=== PATIENT | female | born 1955 | race Caucasian/White ===

== ENCOUNTER 2020-08-08 11:44 | Emergency (ER) | payer OTHER ==
--- OUTSIDE RECORDS SUMMARY | 2020-08-08 11:48 | XMS REPORT | Continuity of Care Document ---
:1955 Author Organization [facility] t Address [address] [place] [address] Dr. Kuo. [address] [place] [address] Care Team Providers Name Role Phone Lab, Fam Pob I Attending Clinician Unavailable Problems This patient has no known problems. Allergies, Adverse Reactions, Alerts This patient has no known allergies or adverse reactions. Medications This patient has no known medications. Procedures This patient has no known procedures. Encounters Start End Encounter Admission Attending Care Care Encounter Source Date/Time Date/Time Type Type Clinicians Facility Department ID 2019-12-13 2019-12-13 Laboratory Lab, [facility] [id number] 14:19:45 14:39:45 Only Fam Pob I [facility] [id number] [place] [id number] [place] [id number] [address] Results This patient has no known results.
--- NOTE | 2020-08-08 12:10 | RAD REPORT ---
EXAM DESCRIPTION: CT - Ct Stroke Brain Wo Cont - 08/08/2020 12:00 pm CLINICAL HISTORY: Vision loss COMPARISON: none TECHNIQUE: Computed axial tomography of the head was obtained. All CT scans are performed using dose optimization technique as appropriate and may include automated exposure control or mA/KV adjustment according to patient size. FINDINGS: An intracranial bleed is not seen . The ventricles are normal in caliber. No extra-axial fluid collection is noted. Fluid within the sinuses/ mastoids is not seen. IMPRESSION: No acute intracranial abnormality is seen. If patient's symptoms persist MRI of the bra in would be recommended. Dr Fan of the emergency room was notified at 12:05 p.m. August 08, 2020
--- NOTE | 2020-08-08 12:24 | RAD REPORT ---
EXAM DESCRIPTION: CTHead angio08/08/2020 12:13 pm CLINICAL HISTORY: Vision loss COMPARISON: None TECHNIQUE: CT angiogram of the head was obtained. 3D MIPS reconstruction performed. All CT scans are performed using dose optimization technique as appropriate and may include automated exposure control or mA/KV adjustment according to patient size. FINDINGS: The basilar, internal carotid, anterior cerebral, middle cerebral and posterior cerebral a rteries are normal caliber. An aneurysm is not seen. A significant stenosis is not noted. IMPRESSION: Unremarkable CT angiogram head.
[2020-08-08 12:27] LABS: Absolute Lymphocytes (CBC) 1.3 K/uL (0.7-4.9); Basophils % 1.2 % (0-1.3); Hematocrit 41.4 % (36.0-45.0); Lymphocytes % 43.3 % (15.3-44.8); MPV 9.3 fL (7.6-11.3); RBC Red Blood Cell Count 3.93 M/uL (3.86-4.86)
[2020-08-08] MEDS ORDERED: TETRACAINE HCL 0.5% 4ML OPTH ONE (12:46)
[2020-08-08] MEDS ORDERED: ASPIRIN 81 MG CHEWABLE TABLET ONE (12:51)
[2020-08-08 13:02] LABS: Blood Morphology Comment NOTED (NOT SEEN); White Blood Cell Scan OK (OK)
[2020-08-08 13:03] LABS: Protime INR 0.9
[2020-08-08 13:03] LABS: Anisocytosis 1+; Macrocytosis 1+; Platelet Estimate ADEQ
[2020-08-08 13:09] LABS: BUN Blood Urea Nitrogen 4 mg/dL (7-18); Bicarbonate 29 mmol/L (21-32); Glucose Level 80 mg/dL (74-106); Potassium 4.3 mmol/L (3.5-5.1); Sodium Level 141 mmol/L (136-145)
--- NOTE | 2020-08-08 13:30 | ER ---
Nurse's Notes [facility] Name: Vicky Marquis Age: 64 yrs Sex: Female : 1955 Arrival Date: 08/08/2020 Time: 11:46 Bed 5 Private MD: Diagnosis: Unqualified visual loss, left eye, normal vision right eye;Central retinal artery occlusion, left eye Presentation: 08/08 11:45 An acute neurological deficit is present. The charge nurse has been notified. The tr6 patient has been moved to a treatment area. The patients blood glucose was checked before arriving to the hospital and was found to be normal. 11:46 Chief complaint: Patient states: Woke up this morning perfectly fine. Took a nap around ca1 1000, woke up 25 - 30 minutes later with sudden loss of vision on L eye. Still unable to see on the L eye at this time. VAN Negative. A\T\Ox4. Denies HX of CVA. Denies HX of Glaucoma, Eye Conditions. Reports headache L side x 1 week. Reports last night, lost her balance and fell. Did not hit head or face. Denies LOC. Coronavirus screen: Client denies travel out of the [place] in the last 14 days. At this time, the client does not indicate any symptoms associated with coronavirus-19. Ebola Screen: Patient negative for fever greater than or equal to 101.5 degrees Fahrenheit, and additional compatible Ebola Virus Disease symptoms Patient denies exposure to infectious person. Patient denies travel to an Ebola-affected area in the 21 days before illness onset. No symptoms or risks identified at this time. Initial Sepsis Screen: Does the patient meet any 2 criteria? No. Patient's initial sepsis screen is negative. Does the patient have a suspected source of infection? No. Patient's initial sepsis screen is negative. Risk Assessment: Do you want to hurt yourself or someone else? Patient reports no desire to harm self or others. Onset of symptoms was August 08, 2020 at 10:30. 11:46 Acuity: NORMA 2 ca1 11:46 Method Of Arrival: Wheelchair ca1 Stroke Activation: Symptom onset < 3 hours Physician: Stroke Attending; Name: ; Notified At: ; Arrived At: Physician: Chief Stroke Resident; Name: ; Notified At: ; Arrived At: Physician: Stroke Resident; Name: ; Notified At: ; Arrived At: Physician: ED Attending; Name: ; Notified At: ; Arrived At: Physician: ED Resident; Name: ; Notified At: ; Arrived At: Historical: - Allergies: 12:07 Talwin; ca1 - Home Meds: 12:07 Lexapro Oral [Active]; ca1 - PMHx: 12:07 Depression; ca1 - PSHx: 12:07 Hysterectomy; ca1 - Immunization history:: Client reports receiving the 2nd dose of the Covid vaccine, Client reports receiving the 1st dose of the Covid vaccine, Flu vaccine is not up to date. - Social history:: Smoking status: Patient denies any tobacco usage or history of. - Family history:: not pertinent. - Hospitalizations: : No recent hospitalization is reported. Screenin:46 Abuse screen: Denies threats or abuse. Denies injuries from another. Nutritional tr6 screening: No deficits noted. Tuberculosis screening: No symptoms or risk factors identified. Fall Risk Fall in past 12 months (25 points). Assessment: 11:47 VAN Scoring: Arm Drift: Patients demonstrates NO arm weakness. Patient is VAN Negative. ca1 11:53 General: code stroke called. tr6 12:34 Patient has been NPO before screening. The patient is alert, and able to follow tr6 commands. The patient does not exhibit slurred or garbled speech. The patient is not exhibiting difficulty speaking. The patient does not exhibit difficulty understanding words. The patient is able to swallow own secretions with no drooling or need for suction. Patient tolerated one teaspoon of water. No drooling, immediate coughing, gurgling, or clearing of the throat was noted. The patient tolerated 90mL of water. No drooling, immediate coughing, gurgling, or clearing of the throat was noted. The patient passed the bedside swallow screening. Oral medications may be given as ordered. Contact Physician for further diet orders. Provider notified of bedside swallow screening results: García Fan MD. Pain: Complains of pain in above left eye. Neuro: No deficits noted. Cardiovascular: No deficits noted. Respiratory: No deficits noted. GI: No deficits noted. : No deficits noted. EENT: Reports pt states when she woke up from a nap she was unable to see out of her left eye. Derm: No deficits noted. Musculoskeletal: No deficits noted. 13:45 Reassessment: Patient appears in no apparent distress at this time. No changes from tr6 previously documented assessment. Patient and/or family updated on plan of care and expected duration. Pain level reassessed. Patient is alert, oriented x 3, equal unlabored respirations, skin warm/dry/pink. Neuro: No deficits noted. Vital Signs: 11:46 BP 122 / 77; tr6 11:46 BP 122 / 75; Pulse 75; Resp 16 S; Temp 97(TE); Pulse Ox 95% on R/A; Weight 67.13 kg ca1 (R); Height 5 ft. 5 in. (165.10 cm) (R); Pain 0/10; 14:00 BP 129 / 85; Pulse 71; Resp 18; Pulse Ox 93% on R/A; tr6 11:46 Body Mass Index 24.63 (67.13 kg, 165.10 cm) ca1 NIH Stroke Scale Scores: 12:34 NIHSS Score: 1 tr6 ED Course: 11:46 Patient arrived in ED. as 11:46 Arm band placed on right wrist. ca1 11:47 García Fan MD is Attending Physician. rn 11:53 Lynne Glez RN is Primary Nurse. tr6 12:00 CT Stroke Brain w/o Contrast In Process Unspecified. EDMS 12:06 Triage completed. ca1 12:14 CT Head Angio In Process Unspecified. EDMS 13:22 initiated transfer to [facility]. bd 13:45 Report given to Roberta SAVAGE from receiving facility [facility]. tr6 13:46 No apparent distress. Resting quietly. transfer transportation to receiving facility. tr6 13:46 Patient has correct armband on for positive identification. Fall risk band placed. Bed tr6 in low position. Call light in reach. Side rails up X2. 13:46 Assist provider with eye exam of left eye. using slit lamp, Performed by García Fan MD tr6 Patient tolerated well. Inserted saline lock: 20 gauge in right antecubital area, using aseptic technique. Patient maintains SpO2 saturation greater than 95% on room air. 14:35 Patient transferred, IV remains in place. tr6 Administered Medications: 12:38 Drug: Aspirin Chewable Tablet 324 mg Route: PO; tr6 13:36 Follow up: Response: No adverse reaction jl7 13:56 Drug: NS 0.9% 500 ml Route: IV; Rate: bolus; Site: right forearm; jl7 Point of Care Testing: Blood Glucose: 14:34 Blood Glucose: 79 mg/dL; tr6 Ranges: Outcome: 13:30 ER care complete, transfer ordered by MD. savage 13:46 Transferred tr6 14:34 Transferred to [facility]. tr6 14:34 Condition: unchanged 14:34 Instructed on the need for transfer. 14:35 Patient left the ED. tr6 NIH Stroke Scale - NIH Stroke Score Date: 08/08/2020 Time: 12:34 Total Score = 1 1a. Level of Consciousness (LOC) - 0(Alert) 1b. Level of Consciousness (LOC) (Year \T\ Age) - 0(Both) 1c. LOC Commands (Open \T\ Closes Eyes/Cloth Winding Supervisor) - 0(Both) 2. Best Gaze (Lateral Gaze Paresis) - 0(Normal) 3. Visual Field Loss - 1(Partial hemianopia) 4. Facial Palsy - 0(Normal) 5a. Left Arm: Motor (10-second hold) - 0(No drift) 5b. Right Arm: Motor (10-second hold) - 0(No drift) 6a. Left Leg: Motor (5-second hold - always test supine) - 0(No drift) 6b. Right Leg: Motor (5-second hold - always test supine) - 0(No drift) 7. Limb Ataxia (finger/nose \T\ heel/perez - test with eyes open) - 0(Absent) 8. Sensory Loss (pinprick arms/legs/face) - 0(Normal) 9. Best Language: Aphasia (description/naming/reading) - 0(No aphasia) 10. Dysarthria (speech clarity - read or repeat words) - 0(Normal) 11. Extinction and Inattention (visual/tactile/auditory/spatial/personal) - 0(No abnormality) Initials: tr6 Signatures: Dispatcher [employer] EDMS Brittanie Doll Amelia as Nieto, Roman, MD MD rn Leal, Jahala, RN RN jl7 Lisa Duarte RN RN ca1 Lynne Glez RN RN tr6 Corrections: (The following items were deleted from the chart) 12:09 11:46 Method Of Arrival: Ambulatory ca1 ca1
--- NOTE | 2020-08-08 13:31 | EDPHYS ---
Physician Documentation [facility] Name: Vicky Marquis Age: 64 yrs Sex: Female : 1955 Arrival Date: 08/08/2020 Time: 11:46 Bed 5 Private MD: ED Physician García Fan HPI: 08/08 12:13 This 64 yrs old Female presents to ER via Wheelchair with complaints of Loss rn Of Vision - l eye. 12:13 The patient is experiencing decreased vision, to the left eye, caused by an unknown rn mechanism. Onset: The symptoms/episode began/occurred 1 hour(s) ago. Associated signs and symptoms: Pertinent positives: headache, Pertinent negatives: chills, fever. Patient wears glasses. Severity of symptoms: At their worst the symptoms were severe in the emergency department the symptoms have improved. The patient has not experienced similar symptoms in the past. The patient has not recently seen a physician. Pt reports woke up today with normal vision, no trauma, + mild headache intermittently for days, took a nap today and woke up an hour prior to arrival with painless loss of vision left eye shortly after waking up. Now sees a little light and shapes left upper outer quadrant. Right eye fine. No other associated neurological complaints. No hx of glaucoma. No retinal problems in past. Not diabetic.. Historical: - Allergies: 12:07 Talwin; ca1 - Home Meds: 12:07 Lexapro Oral [Active]; ca1 - PMHx: 12:07 Depression; ca1 - PSHx: 12:07 Hysterectomy; ca1 - Immunization history:: Client reports receiving the 2nd dose of the Covid vaccine, Client reports receiving the 1st dose of the Covid vaccine, Flu vaccine is not up to date. - Social history:: Smoking status: Patient denies any tobacco usage or history of. - Family history:: not pertinent. - Hospitalizations: : No recent hospitalization is reported. ROS: 12:13 Constitutional: Negative for fever, chills, and weight loss, Eyes: + loss of vision rn left eye ENT: Negative for injury, pain, and discharge, Neck: Negative for injury, pain, and swelling, Cardiovascular: Negative for chest pain, palpitations, and edema, Respiratory: Negative for shortness of breath, cough, wheezing, and pleuritic chest pain, Abdomen/GI: Negative for abdominal pain, nausea, vomiting, diarrhea, and constipation, Back: Negative for injury and pain, MS/Extremity: Negative for injury and deformity, Skin: Negative for injury, rash, and discoloration, Neuro: Negative for weakness, numbness, tingling, and seizure. Exam: 12:13 Constitutional: This is a well developed, well nourished patient who is awake, alert, rn and in no acute distress. Head/Face: Normocephalic, atraumatic. No tenderness over temporal arteries. Eyes: Pupils equal round and reactive to light, extra-ocular motions intact. Lids and lashes normal. Conjunctiva and sclera are non-icteric and not injected. Cornea within normal limits. Periorbital areas with no swelling, redness, or edema. + relative APD left eye. Neck: Trachea midline, no thyromegaly or masses palpated, and no cervical lymphadenopathy. Supple, full range of motion without nuchal rigidity, or vertebral point tenderness. No Meningismus. Cardiovascular: Regular rate and rhythm. No pulse deficits. Respiratory: No increased work of breathing, no retractions or nasal flaring. Abdomen/GI: soft, non-tender Skin: Warm, dry MS/ Extremity: Pulses equal, no cyanosis. Neuro: Awake and alert, GCS 15, oriented to person, place, time, and situation. Cranial nerves II-XII grossly intact. Motor strength 5/5 in all extremities. Sensory grossly intact. Cerebellar exam normal. + able to identify movement and light left upper outer quadrant visual field, no vision in other 3 quadrants. Vital Signs: 11:46 BP 122 / 77; tr6 11:46 BP 122 / 75; Pulse 75; Resp 16 S; Temp 97(TE); Pulse Ox 95% on R/A; Weight 67.13 kg ca1 (R); Height 5 ft. 5 in. (165.10 cm) (R); Pain 0/10; 14:00 BP 129 / 85; Pulse 71; Resp 18; Pulse Ox 93% on R/A; tr6 11:46 Body Mass Index 24.63 (67.13 kg, 165.10 cm) ca1 NIH Stroke Scale Scores: 12:34 NIHSS Score: 1 tr6 MDM: 11:48 Patient medically screened. rn 12:32 ED course: Bedside ultrasound performed by me, no evidence of retinal detachment service order dispatcher chief hemorrhage. Tonopen used and left eye pressure 25 both times tested and 25 in right eye as well. CT angio head neg, ct head without neg. Vision is improving, no longer quadrantanopia, can see in all quadrants, to light and shadow. . 12:58 ED course: Ocular massage attempted to affected eye, without improvement of symptoms.. rn 13:06 ED course: Consulted with Dr. Mae regarding sudden painless monocular vision loss, rn other than aspirin she states nothing can be done acutely, recommends transfer to [facility] for further evaluation of temporal arteritis, complete stroke w/u, and agrees with possible CRAO or branch occlusion. Does not recommend any acute treatments at this time. . 13:18 ED course: [facility] cannot take patient because they do not have retinal rn specialists, directed to transfer to another facility by transfer center. . 13:28 Differential diagnosis: retinal detachment, CRAO, CRVO, glaucoma, amaurosis fugax. Data rn reviewed: vital signs, nurses notes, lab test result(s), EKG, radiologic studies, CT scan, and as a result, I will admit patient. Counseling: I had a detailed discussion with the patient and/or guardian regarding: the historical points, exam findings, and any diagnostic results supporting the discharge/admit diagnosis, lab results, radiology results, the need to transfer to another facility, for higher level of care, [facility] does not immediately have the required specialist. Response to treatment: the patient's symptoms have mildly improved after treatment, and as a result, I will admit patient. ED course: Accepted for transfer to [facility] for ophtho eval. . 08/08 11:53 Order name: Basic Metabolic Panel rn 08/08 11:53 Order name: CBC with Diff; Complete Time: 13: 08/08 11:53 Order name: Protime (+inr); Complete Time: 13:22 08/08 11:53 Order name: Ptt, Activated; Complete Time: 13: 08/08 11:54 Order name: Basic Metabolic Panel; Complete Time: 13:22 EDMS 08/08 12:01 Order name: ESR; Complete Time: 12:55 08/08 11:53 Order name: CT Stroke Brain w/o Contrast; Complete Time: 12:32 rn 08/08 11:53 Order name: CT Head Angio; Complete Time: 12:32 rn 08/08 12:01 Order name: CRP; Complete Time: 13:22 rn 08/08 12:27 Order name: CREATININE WHOLE BLOOD; Complete Time: 12:32 EDOR 08/08 12:30 Order name: CBC Smear Scan; Complete Time: 13:22 EDOR 08/08 12:33 Order name: Glucose, Ancillary Testing; Complete Time: 12:41 EDOR 08/08 14:04 Order name: SARS-COV-2 RT PCR EDOR 08/08 11:53 Order name: Accucheck; Complete Time: 12:38 rn 08/08 11:53 Order name: Cardiac monitoring; Complete Time: 12:12 rn 08/08 11:53 Order name: EKG - Nurse/Tech; Complete Time: 12:38 rn 08/08 11:53 Order name: IV Saline Lock; Complete Time: 11:54 rn 08/08 11:53 Order name: Labs collected and sent; Complete Time: 12:12 rn 08/08 11:53 Order name: NPO; Complete Time: 11:55 rn 08/08 11:53 Order name: O2 Per Protocol; Complete Time: 11:54 rn 08/08 11:53 Order name: O2 Sat Monitoring; Complete Time: 11:54 rn 08/08 11:53 Order name: Stroke Swallow Screen; Complete Time: 11:54 rn Administered Medications: 12:38 Drug: Aspirin Chewable Tablet 324 mg Route: PO; tr6 13:36 Follow up: Response: No adverse reaction jl7 13:56 Drug: NS 0.9% 500 ml Route: IV; Rate: bolus; Site: right forearm; jl7 Point of Care Testing: Blood Glucose: 14:34 Blood Glucose: 79 mg/dL; tr6 Ranges: Critical Glucose Levels:Adult <50 mg/dl or >400 mg/dl <40 mg/dl or >180 mg/dl Disposition: 08/08/20 13:30 Transfer ordered to [facility]. Diagnosis are Unqualified visual loss, left eye, normal vision right eye, Central retinal artery occlusion, left eye. - Reason for transfer: Higher level of care. - Accepting physician is Dr. Best. - Condition is Stable. - Problem is new. - Symptoms have improved. NIH Stroke Scale - NIH Stroke Score Date: 08/08/2020 Time: 12:34 Total Score = 1 1a. Level of Consciousness (LOC) - 0(Alert) 1b. Level of Consciousness (LOC) (Year \T\ Age) - 0(Both) 1c. LOC Commands (Open \T\ Closes Eyes/Disk Sharpener) - 0(Both) 2. Best Gaze (Lateral Gaze Paresis) - 0(Normal) 3. Visual Field Loss - 1(Partial hemianopia) 4. Facial Palsy - 0(Normal) 5a. Left Arm: Motor (10-second hold) - 0(No drift) 5b. Right Arm: Motor (10-second hold) - 0(No drift) 6a. Left Leg: Motor (5-second hold - always test supine) - 0(No drift) 6b. Right Leg: Motor (5-second hold - always test supine) - 0(No drift) 7. Limb Ataxia (finger/nose \T\ heel/perez - test with eyes open) - 0(Absent) 8. Sensory Loss (pinprick arms/legs/face) - 0(Normal) 9. Best Language: Aphasia (description/naming/reading) - 0(No aphasia) 10. Dysarthria (speech clarity - read or repeat words) - 0(Normal) 11. Extinction and Inattention (visual/tactile/auditory/spatial/personal) - 0(No abnormality) Initials: tr6 Signatures: Dispatcher [employer] EDMS García Fan MD MD rn Leal, Jahala, RN RN jl7 Lisa Duarte RN RN ca1 Ramnanan, Tiffany, RN RN tr6 Corrections: (The following items were deleted from the chart) 12:51 12:32 ED course: Bedside ultrasound performed by co, no evidence of retinal rn detachment or hemorrhage. Tonopen used and left eye pressure [address] angio head neg, ct head without neg. Vision is improving, no longer quadrantanopia, can see in all quadrants, to light and shadow. . rn 12:55 12:13 Constitutional: This is a well developed, well nourished patient who is rn awake, alert, and in no acute distress. Head/Face: Normocephalic, atraumatic. Eyes: Pupils equal round and reactive to light, extra-ocular motions intact. Lids and lashes normal. Conjunctiva and sclera are non-icteric and not injected. Cornea within normal limits. Periorbital areas with no swelling, redness, or edema. Neck: Trachea midline, no thyromegaly or masses palpated, and no cervical lymphadenopathy. Supple, full range of motion without nuchal rigidity, or vertebral point tenderness. No Meningismus. Cardiovascular: Regular rate and rhythm. No pulse deficits. Respiratory: No increased work of breathing, no retractions or nasal flaring. Abdomen/GI: soft, non-tender Skin: Warm, dry MS/ Extremity: Pulses equal, no cyanosis. Neuro: Awake and alert, GCS 15, oriented to person, place, time, and situation. Cranial nerves II-XII grossly intact. Motor strength 5/5 in all extremities. Sensory grossly intact. Cerebellar exam normal. + able to identify movement and light left upper outer quadrant visual field, no vision in other 3 quadrants. rn 12:59 12:13 Constitutional: This is a well developed, well nourished patient who is rn awake, alert, and in no acute distress. Head/Face: Normocephalic, atraumatic. Eyes: Pupils equal round and reactive to light, extra-ocular motions intact. Lids and lashes normal. Conjunctiva and sclera are non-icteric and not injected. Cornea within normal limits. Periorbital areas with no swelling, redness, or edema. + relative APD left eye. Neck: Trachea midline, no thyromegaly or masses palpated, and no cervical lymphadenopathy. Supple, full range of motion without nuchal rigidity, or vertebral point tenderness. No Meningismus. Cardiovascular: Regular rate and rhythm. No pulse deficits. Respiratory: No increased work of breathing, no retractions or nasal flaring. Abdomen/GI: soft, non-tender Skin: Warm, dry MS/ Extremity: Pulses equal, no cyanosis. Neuro: Awake and alert, GCS 15, oriented to person, place, time, and situation. Cranial nerves II-XII grossly intact. Motor strength 5/5 in all extremities. Sensory grossly intact. Cerebellar exam normal. + able to identify movement and light left upper outer quadrant visual field, no vision in other 3 quadrants. rn 13:24 13:08 CORONAVIRUS+MR.LAB.BRZ ordered. EDMS EDMS 14:35 13:30 08/08/2020 13:30 Transfer ordered to [facility]. Diagnosis tr6 is Unqualified visual loss, left eye, normal vision right eye; Central retinal artery occlusion, left eye. Reason for transfer: Higher level of care. Accepting physician is Dr. Best. Condition is Stable. Problem is new. Symptoms have improved. rn
[2020-08-08] MEDS ORDERED: NA CHLORIDE 0.9% 500 ML ONE (14:04)
[2020-08-08 14:42] VITALS: TEMP 97
[2020-08-08 14:43] VITALS: BP 129/85; O2SAT 93
== END 2020-08-08 14:35 | disposition short-term general hospital (02) ==
LOC: ER 11:44
DX: H34.12 Central retinal artery occlusion, left eye (principal); F32.9 Major depressive disorder, single episode, unspecified; Z88.6 Allergy status to analgesic agent; Z20.822 Contact with and (suspected) exposure to COVID-19
CPT/HCPCS: 85025; 80048; 36415; 85610; 82565; 82947; 85730; 85652; 86140; 70496; 70450; U0003; Q9967; J7040; 99285

== ENCOUNTER 2021-11-09 22:31 | Emergency (ER) | payer OTHER ==
--- OUTSIDE RECORDS SUMMARY | 2021-11-09 22:35 | XMS REPORT | Continuity of Care Document ---
:1955 Author Organization [facility] t Address [address] [place] [address] Care Team Providers Name Role Phone Pcp, Patient Does Not Have A Primary Care Physician [phone] Doctor Unassigned, [place] Attending Clinician Unavailable MELANY RUSH Attending Clinician Unavailable Melany Rush Attending Clinician Lab, Ad[facility] Fam Pob I Attending Clinician Unavailable Dilma Hinds Attending Clinician DILMA GARCIAS Attending Clinician Unavailable MELNAY RUSH Admitting Clinician Unavailable Melany Rush Admitting Clinician Payers Payer Name Policy Type Policy Number Effective Date Expiration Date S ource Problems Condition Condition Condition Status Onset Resolution Last Treating Co mments Source Name Details Category Date Date Treatment Clinician Date POSSIBLE POSSIBLE Diagnosis Active 2020-08-08 Memoria RETINAL RETINAL 08-08 17:47:00 l ARTERY ARTERY 00:00: Carlos OCCLUSION OCCLUSION 00 Active 08/08/2020 [facility] LEFT EYE LEFT EYE Diagnosis Active 2020-08-18 Memoria VISION VISION 08-08 21:59:00 l LOSS LOSS 00:00: Carlos Active 00 08/08/2020 [facility] UNQUALIFIE UNQUALIFI Diagnosis Active 2020-08-18 Memoria D VISUAL ED VISUAL 21:59:00 l LOSS, LEFT LOSS, LEFT He rmann EYE, MANISHA EYE, MANISHA Active [facility] Allergies, Adverse Reactions, Alerts Allergy Allergy Status Severity Reaction(s) Onset Inactive Treating Comm ents Source Name Type Date Date Clinician NO KNOWN Drug Active Univers ALLERGIE Class it[facility] of [facility] Social History Social Habit Start Date Stop Date Quantity Comments Source Exposure to Not sure [facility] SARS-CoV-2 (event) [facility] Sex Assigned At [birth year] [facility] 00:00:00 00:00:00 Medical Branch Smoking Status Start Date Stop Date Source Unknown if ever smoked [facility] Social History 2020-08-09 09:27:42 2020-08-09 09:27:42 [facility] Medications Ordered Filled Start Stop Current Ordering Indication Dosage Frequency Signature Comments Components Source Medication Medication Date Date Medication? Clinician (SIG) Name Name Nano No 20 mg, 1 Memori a 5-27 tab, l 14:00: Route: PO, Carlos 00 Drug form: TAB, Daily, Dosing Weight 65.909, kg, Start date: 08/10/20 9:00:00 CDT, Duration: 30 day, Stop date: 09/08/20 9:00:00 CDT atorvastati No Notes: Melchor bridger n 5-27 Same as l 02:00: Lipitor Carlos 00 lisinopril Yes 5 mg = 1 Mem oria 5 mg oral 5-26 tab, PO, l tablet 19:51: Daily, # [place] 00 30 tab, 0 Refill(s), [facility]acy: [id number], 165.1, cm, 08/09/20 4:30:00 CDT, Height, 65.909, kg, 08/08/20 15:44:00 CDT, Weight Aspirin 81 2020-0 Yes 81 mg = 1 Me moria MG Enteric 5-26 tab, PO, l Coated 19:46: Q24H, # 30 Vita nn Tablet 00 tab, 0 Refill(s), [facility]acy: [id number], 165.1, cm, 08/09/20 4:30:00 CDT, Height, 65.909, kg, 08/08/20 15:44:00 CDT, Weight atorvastati Yes 80 mg = 1 M emoria n 80 mg 5-26 tab, PO, l oral tablet 19:46: Bedtime, # [place] 00 30 tab, 0 Refill(s), [facility]: [id number], 165.1, cm, 08/09/20 4:30:00 CDT, Height, 65.909, kg, 08/08/20 15:44:00 CDT, Weight meloxicam Yes 7.5 mg = 1 Me moria 7.5 mg oral 5-26 tab, PO, l tablet 19:19: Daily, # Carlos 00 30 tab, 0 Refill(s) Aspirin 81 No Notes: Do Me moria MG Enteric 5-26 not crush l Coated 14:00: or chew. [place] Tablet 00 (Same As: Ecotrin) heparin No Notes: Memoria 5-26 porcine l 05:00: heparin Saline No Notes: Memoria Flush 0.9% 5-26 (Same as: l 02:00: BD Posiflush) Escitalopra Yes 20 mg = 1 M emoria m 20 MG 5-26 tab, PO, l Oral Tablet 01:54: Daily, # Sanju rmann [Lexapro] 00 30 tab, 0 Refill(s) Labetalol No 105 mmHg, Me moria 5-26 Start l 01:46: date: 08/08/20 20:46:00 CDT, Duration: 30 day, Stop date: 09/07/20 20:45:00 CDT, 0 Ondansetron No Notes: Melchor bridger 5-26 (Same as: l 01:46: Zofran) MEDICATION WASTE Product Size: 4 mg Product Wasted: ___ mg Bisacodyl No Notes: Memori a 5-26 (Same As: l 01:46: Dulcolax, Bisco-Lax) Acetaminoph No Notes: Do M emoria en 5-26 not exceed l 01:46: 4 gm/day. (Same as: Tylenol) Saline No Notes: Memoria Flush 0.9% 08-09 (Same as: l 01:46: BD [place] 00 Posiflush) Sodium No 250 mL, Memoria Chloride 08-09 250 ml/hr, l 0.9% 01:42: Infuse Carlos (Bolus) IV 00 Over: 1 hr, Route: IV, 250, Drug form: INJ, ONCE, Priority: STAT, Dosing Weight 65.909 kg, Start date: 08/08/20 20:42:00 CDT, PRN Other -See Comment, 0 Vital Signs Vital Name Observation Time Observation Value Comments Source Respitory Rate 2020-08-09 12:49:00 Memori al [place] Temperature Oral (F) 2020-08-09 12:49:00 99.4 F [facility] [place] Heart Rate 2020-08-09 12:49:00 [facility] [place] Systolic (mm Hg) 2020-08-09 12:49:00 Melchor rial Carlos Diastolic (mm Hg) 2020-08-09 12:49:00 Mem orial [place] Temperature Oral (F) 2020-08-09 09:33:00 98.6 F [facility] [place] Heart Rate 2020-08-09 09:33:00 [facility] [place] Respitory Rate 2020-08-09 09:33:00 Memori al [place] Systolic (mm Hg) 2020-08-09 09:33:00 Melchor rial [place] Diastolic (mm Hg) 2020-08-09 09:33:00 Mem orial [place] Height 2020-08-09 09:30:00 165.1 cm [facility] [place] Respitory Rate 2020-08-09 07:51:00 Memori al [place] Systolic (mm Hg) 2020-08-09 07:51:00 Melchor rial [place] Diastolic (mm Hg) 2020-08-09 07:51:00 Mem orial [place] Height 2020-08-08 20:44:00 165.1 cm [facility] [place] BMI Calculated 2020-08-08 20:44:00 Memori al [place] Weight 2020-08-08 20:44:00 [facility] [place] Heart Rate 2020-08-08 20:44:00 [facility] [place] Temperature Oral (F) 2020-08-08 20:44:00 98.4 F [facility] Procedures Procedure Date / Time Performing Clinician Source Performed AUTHORIZATION FOR 2021-07-19 05:01:00 Doctor Makaylasssai, No [facility] RELEASE OF PHI Name Medical Branch Encounters Start End Encounter Admission Attending Care Care Encounter Source Date/Time Date/Time Type Type Clinicians Facility Department ID 2021-07-19 2021-07-19 Orders Doctor KAREN [id number] [facility] 00:00:00 00:00:00 Only Unassigned, CARYL [id number] ity of [place] [facility] [id number] Quintin as [phone] [address] 2020-08-08 2020-08-09 Inpatient [facility] [id number] Memoria 20:41:00 21:18:[address] 2020-08-08 2020-08-09 Inpatient E CZAP, [facility] 1145 [facility] 20:42:00 16:18:00 MELANY 2020-08-08 2020-08-09 Outpatient [facility] [id number] 911 15:41:00 16:18:00 Melany Kaykay Lu 2020-08-08 2020-08-09 Outpatient Czap, [facility] [id number] 911 15:41:00 16:18:00 Melany Kaykay Velardelie 2019-12-13 2019-12-13 Laboratory Lab, [facility] Fam Pob I [facility] [id number] [facility] 14:19:45 14:39:45 Only Anene [facility] [id number] ity of [place] [id number] Quintin as Professio [phone] Wi dical nal [address] 2019-12-13 2019-12-13 Laboratory Lab, [facility] [id number] 14:19:45 14:39:45 Only Fam Pob I Health [id number] [place] [id number] Professio [phone] nal [address] 2019-12-13 2019-12-13 Outpatient R ANENE, [facility] [id number] Univers 14:20:00 14:20:00 DILMA [facility] Results Test Description Test Time Test Comments Results Result Comments Source IMMUNOLOGY 2020-08-09 03:07:00 Test Item Value Reference Range Interpretation Comme nts Coronavirus (COVID-19) PEDRO LUIS (test code = Not Detected (08/08/20 10:07 PM) Coronavirus (COVID-19) PEDRO LUIS) [facility] AND [id number] 03:03:00 Test Item Value Reference Range Interpretation Comments UA Bacteria (test code = UA Occasional /HPF Bacteria) [facility] AND [id number] 03:03:00 Test Item Value Reference Range Interpretation Comments UA Mucus (test code = UA Mucus) Few /LPF [facility] AND [id number] 03:03:00 Test Item Value Reference Range Interpretation Comments UA Hyal Cast (test 1 See_Comment [Automat ed message] The code = UA Hyal Cast) system which generated this result transmit adolfo reference range : <=2. The reference range was not used to interpr et this result as manisha l/abnormal. [facility]2021-05-26 03:03:00 Test Item Value Reference Range Interpretation Comments Glucose Lvl (test code = Glucose Lvl) 75 70-99 [facility]2021-05-26 03:03:00 Test Item Value Reference Range Interpretation Comments BUN (test code = BUN) 4 7-22 [facility]2021-05-26 03:03:00 Test Item Value Reference Range Interpretation Comments Creatinine Lvl (test code = Creatinine 0.55 0.50-1.40 Lvl) [facility]2021-05-26 03:03:00 Test Item Value Reference Range Interpretation Comments Sodium Lvl (test code = Sodium Lvl) 142 135-145 [facility]2021-05-26 03:03:00 Test Item Value Reference Range Interpretation Comments Potassium Lvl (test code = Potassium 3.9 3.5-5.1 Lvl) [facility]2021-05-26 03:03:00 Test Item Value Reference Range Interpretation Comments Chloride Lvl (test code = Chloride Lvl) 108 95-109 [facility]2021-05-26 03:03:00 Test Item Value Reference Range Interpretation Comments CO2 (test code = CO2) 23 24-32 [facility] [employer] [id number] 03:03:00 Test Item Value Reference Range Interpretation Comments Calcium Lvl (test code = Calcium Lvl) 8.8 8.5-10.5 [facility] [id number] 03:03:00 Test Item Value Reference Range Interpretation Comments AGAP (test code = AGAP) 14.9 10.0-20.0 [facility] [employer] [id number] 03:03:00 Test Item Value Reference Range Interpretation Comments eGFR (test code = eGFR) 101 [facility] [id number] 03:03:00 Test Item Value Reference Range Interpretation Comments U Amph Scr (test code Negative *NA*(08/08/20 = U Amph Scr) 10:03 PM) [facility] [id number] 03:03:00 Test Item Value Reference Range Interpretation Comments U Vandana Scr (test code Negative *NA*(08/08/20 = U Vandana Scr) 10:03 PM) [facility] [id number] 03:03:00 Test Item Value Reference Range Interpretation Comments U Benzodiaz Scr (test Negative *NA*(08/08/20 code = U Benzodiaz Scr) 10:03 PM) [facility] [id number] 03:03:00 Test Item Value Reference Range Interpretation Comments U Cannab Scr (test Negative *NA*(08/08/20 code = U Cannab Scr) 10:03 PM) [facility] [id number] 03:03:00 Test Item Value Reference Range Interpretation Comments U Cocaine Scr (test Negative *NA*(08/08/20 code = U Cocaine Scr) 10:03 PM) [facility] [id number] 03:03:00 Test Item Value Reference Range Interpretation Comments U Opiate Scr (test Negative *NA*(08/08/20 code = U Opiate Scr) 10:03 PM) [facility] [id number] 03:03:00 Test Item Value Reference Range Interpretation Comments U Phencyclidine Scr (test Negative code = U Phencyclidine *NA*(08/08/20 10:03 Scr) PM) [facility] [id number] 03:03:00 Test Item Value Reference Range Interpretation Comments UDS Note (test code = See Note *NA*(08/08/20 UDS Note) 10:03 PM) [id number] 03:03:00 Test Item Value Reference Range Interpretation Comments WBC X 10x3 (test code = WBC X 10x3) 5.6 3.7-10.[address] [facility] HospitalDwmctkuUXIKGZLNFT7640-84-97 03:03:00 Test Item Value Reference Range Interpretation Comments RBC X 10x6 (test code = RBC X 10x6) 3.72 4.20-5.40 [facility]cosGzcvsrsVSFXQLBCGL8883-54-45 03:03:00 Test Item Value Reference Range Interpretation Comments Hgb (test code = Hgb) 13.6 12.0-16.0 [facility] CenterMkolpjjOCFZGGNJRU3207-48-83 03:03:00 Test Item Value Reference Range Interpretation Comments Hct (test code = Hct) 40.5 36.0-48.[address] [facility] Hos[id number] 03:03:00 Test Item Value Reference Range Interpretation Comments MCV (test code = MCV) 108.9 80.0-98.0 [facility] CenterHtdnusyHZDUELDWEM6365-39-47 03:03:00 Test Item Value Reference Range Interpretation Comments MCH (test code = MCH) 36.4 pg 27.0-31.[address] [facility] Hos[id number] 03:03:00 Test Item Value Reference Range Interpretation Comments MCHC (test code = MCHC) 33.5 32.0-36.[address] [facility] Hos[id number] 03:03:00 Test Item Value Reference Range Interpretation Comments RDW (test code = RDW) 13.1 11.5-14.5 [facility] CenterDnfqioyRTDGGRDDCR7552-30-49 03:03:00 Test Item Value Reference Range Interpretation Comments Platelet (test code = Platelet) 197 133-[address] [facility] H[id number] 03:03:00 Test Item Value Reference Range Interpretation Comments MPV (test code = MPV) 7.8 7.4-10.4 [facility] C[id number] 03:03:00 Test Item Value Reference Range Interpretation Comments Plt Morph (test code = Normal (08/08/20 10:03 Plt Morph) PM) [place] [id number] 03:03:00 Test Item Value Reference Range Interpretation Comments Segs (test code = Segs) 76.4 45.0-75.0 [place] [address]-05-26 03:03:00 Test Item Value Reference Range Interpretation Comments Lymphocytes (test code = Lymphocytes) 16.7 20.0-40.0 [place] [address]-05-26 03:03:00 Test Item Value Reference Range Interpretation Comments Monocytes (test code = Monocytes) 5.5 2.0-12.0 [place] [address]-05-26 03:03:00 Test Item Value Reference Range Interpretation Comments Eosinophils (test code = 1.0 See_Comment [A utomated message] The Eosinophils) system which ge nerated this result tra nsmitted reference range : <=4.0. The reference r rao was not used to int erpret this result as normal/abnormal . [place] [address]-05-26 03:03:00 Test Item Value Reference Range Interpretation Comments Basophils (test code = 0.4 See_Comment [Aut omated message] The Basophils) system which ge nerated this result tra nsmitted reference range : <=1.0. The reference r rao was not used to int erpret this result as normal/abnormal . [place] [address]-05-26 03:03:00 Test Item Value Reference Range Interpretation Comments Neutrophils # (test code = Neutrophils 4.3 1.5-8.1 #) [place] 277591-05-26 03:03:00 Test Item Value Reference Range Interpretation Comments Lymphocytes # (test code = Lymphocytes 0.9 1.0-5.5 #) [place] [address]-05-26 03:03:00 Test Item Value Reference Range Interpretation Comments Monocytes # (test code 0.3 See_Comment [Aut omated message] The = Monocytes #) system which generated this result tra nsmitted reference range : <=0.8. The reference r rao was not used to int erpret this result as normal/abnormal . [place] 277591-05-26 03:03:00 Test Item Value Reference Range Interpretation Comments Eosinophils # (test code 0.1 See_Comment [A utomated message] The = Eosinophils #) system whic h generated this result tra nsmitted reference range : <=0.5. The reference r rao was not used to int erpret this result as normal/abnormal . [facility] [id number] 03:03:00 Test Item Value Reference Range Interpretation Comments Macrocyte (test code = 2+ *ABN*(08/08/20 Macrocyte) 10:03 PM) [facility] CenterYqmrfobHJAHFJ6344-98-09 03:03:00 Test Item Value Reference Range Interpretation Comments Trig (test code = Trig) 76 [facility] CenterJeojvvuMDAMGM6393-51-72 03:03:00 Test Item Value Reference Range Interpretation Comments Chol (test code = Chol) 289 [facility] CenterXvulijaWRGYGM1759-42-48 03:03:00 Test Item Value Reference Range Interpretation Comments HDL (test code = HDL) 122 [facility] CenterEfwsldtYFMHVW9241-31-88 03:03:00 Test Item Value Reference Range Interpretation Comments CHD Risk (test code = CHD Risk) 2.37 1 3.90-5.80 [facility] CenterUypdherCBQUGQ6729-00-58 03:03:00 Test Item Value Reference Range Interpretation Comments LDL (Calculated) (test code = LDL 152 (Calculated)) [facility] CenterCrbbyxnGAIDCT1600-16-08 03:03:00 Test Item Value Reference Range Interpretation Comments VLDL (test code = VLDL) 15 1 [facility] [id number] 03:03:00 Test Item Value Reference Range Interpretation Comments Hgb A1C (test code = Hgb A1C) 5.4 [facility] AND [id number] 03:03:00 Test Item Value Reference Range Interpretation Comments UA Color (test code = Yellow *NA*(08/08/20 UA Color) 10:03 PM) [facility] AND [id number] 03:03:00 Test Item Value Reference Range Interpretation Comments UA Turbidity (test code = Clear (08/08/20 10:03 UA Turbidity) PM) [facility] AND [id number] 03:03:00 Test Item Value Reference Range Interpretation Comments UA Spec Grav (test code = UA Spec 1.058 1 Grav) [facility] AND [id number] 03:03:00 Test Item Value Reference Range Interpretation Comments UA pH (test code = UA pH) 6.0 1 5.0-8.0 [facility] AND [id number] 03:03:00 Test Item Value Reference Range Interpretation Comments UA Protein (test code = UA Negative mg/dL Protein) [facility] AND [id number] 03:03:00 Test Item Value Reference Range Interpretation Comments UA Glucose (test code = UA Negative mg/dL Glucose) [facility] AND [id number] 03:03:00 Test Item Value Reference Range Interpretation Comments UA Ketones (test code = UA Trace mg/dL Ketones) [facility] AND [id number] 03:03:00 Test Item Value Reference Range Interpretation Comments UA Bili (test code = Negative *NA*(08/08/20 UA Bili) 10:03 PM) [facility] AND [id number] 03:03:00 Test Item Value Reference Range Interpretation Comments UA Blood (test code = Negative (08/08/20 10:03 UA Blood) PM) [facility] AND [id number] 03:03:00 Test Item Value Reference Range Interpretation Comments UA Urobilinogen (test code = UA no gt 0.1-1.0 Urobilinogen) [facility] AND [id number] 03:03:00 Test Item Value Reference Range Interpretation Comments UA Nitrite (test code Negative (08/08/20 10:03 = UA Nitrite) PM) [facility] AND [id number] 03:03:00 Test Item Value Reference Range Interpretation Comments UA Leuk Est (test Negative (08/08/20 10:03 code = UA Leuk Est) PM) [facility] AND [id number] 03:03:00 Test Item Value Reference Range Interpretation Comments UA Sq Epi (test code = UA Sq Occasional /LPF Epi) [facility] AND [id number] 03:03:00 Test Item Value Reference Range Interpretation Comments UA WBC (test code = 1 See_Comment [Automa adolfo message] The UA WBC) system which ge nerated this result transmit adolfo reference range : <=5. The reference range was not used to interpr et this result as manisha l/abnormal. [facility] AND [id number] 03:03:00 Test Item Value Reference Range Interpretation Comments UA RBC (test code = no gt See_Comment [Automa adolfo message] The UA RBC) system which ge nerated this result transmit adolfo reference range : <=2. The reference range was not used to interpr et this result as manisha l/abnormal. [facility] CenterZmrsjrqPTFKSNAWVC4770-80-06 21:35:00 Test Item Value Reference Range Interpretation Comments PTT (test code = PTT) 30.5 s 22.9-35.8 [place] 277591-05-25 21:35:00 Test Item Value Reference Range Interpretation Comments Sed Rate (test code = 9 See_Comment [Auto mated message] The Sed Rate) system which ge nerated this result transmit adolfo reference range : <=20. The reference range was not used to interpr et this result as manisha l/abnormal. [facility] CenterToyclmkYNJOWHKHQN6530-49-60 21:35:00 Test Item Value Reference Range Interpretation Comments Segs (test code = Segs) 47.2 45.0-75.0 [place] 277591-05-25 21:35:00 Test Item Value Reference Range Interpretation Comments Lymphocytes (test code = Lymphocytes) 42.7 20.0-40.0 [place] 277591-05-25 21:35:00 Test Item Value Reference Range Interpretation Comments Monocytes (test code = Monocytes) 7.9 2.0-12.0 [facility] CenterHtzecaaCUOGOUIQXJ7368-55-18 21:35:00 Test Item Value Reference Range Interpretation Comments Eosinophils (test code = 1.4 See_Comment [A utomated message] The Eosinophils) system which ge nerated this result tra nsmitted reference range : <=4.0. The reference r rao was not used to int erpret this result as normal/abnormal . [place] 277591-05-25 21:35:00 Test Item Value Reference Range Interpretation Comments Basophils (test code = 0.8 See_Comment [Aut omated message] The Basophils) system which ge nerated this result tra nsmitted reference range : <=1.0. The reference r rao was not used to int erpret this result as normal/abnormal . [place] 277591-05-25 21:35:00 Test Item Value Reference Range Interpretation Comments Neutrophils # (test code = Neutrophils 1.3 1.5-8.1 #) [place] 277591-05-25 21:35:00 Test Item Value Reference Range Interpretation Comments Lymphocytes # (test code = Lymphocytes 1.2 1.0-5.5 #) [place] 277591-05-25 21:35:00 Test Item Value Reference Range Interpretation Comments Monocytes # (test code 0.2 See_Comment [Aut omated message] The = Monocytes #) system which generated this result tra nsmitted reference range : <=0.8. The reference r rao was not used to int erpret this result as normal/abnormal . [place] 277591-05-25 21:35:00 Test Item Value Reference Range Interpretation Comments Macrocyte (test code = 2+ *ABN*(08/08/20 Macrocyte) 4:35 PM) [facility] [id number] 21:35:00 Test Item Value Reference Range Interpretation Comments C-REACTIVE PROTEIN (test code = 5.7 C-REACTIVE PROTEIN) [place] 277591-05-25 21:35:00 Test Item Value Reference Range Interpretation Comments WBC X 10x3 (test code = WBC X 10x3) 2.8 3.7-10.4 [place] 277591-05-25 21:35:00 Test Item Value Reference Range Interpretation Comments RBC X 10x6 (test code = RBC X 10x6) 3.73 4.20-5.40 [place] [address]-05-25 21:35:00 Test Item Value Reference Range Interpretation Comments Hgb (test code = Hgb) 13.3 12.0-16.0 [place] [address]-05-25 21:35:00 Test Item Value Reference Range Interpretation Comments Hct (test code = Hct) 39.9 36.0-48.0 [place] [address]-05-25 21:35:00 Test Item Value Reference Range Interpretation Comments MCV (test code = MCV) 107.1 80.0-98.0 [place] [address]-05-25 21:35:00 Test Item Value Reference Range Interpretation Comments MCH (test code = MCH) 35.8 pg 27.0-31.0 [place] 277591-05-25 21:35:00 Test Item Value Reference Range Interpretation Comments MCHC (test code = MCHC) 33.4 32.0-36.0 [facility] [id number] 21:35:00 Test Item Value Reference Range Interpretation Comments RDW (test code = RDW) 13.1 11.5-14.5 [place] [address]-05-25 21:35:00 Test Item Value Reference Range Interpretation Comments Platelet (test code = Platelet) 174 133-450 [facility] CenterKaavugvDUSSWGPOBU8678-76-00 21:35:00 Test Item Value Reference Range Interpretation Comments MPV (test code = MPV) 7.5 7.4-10.4 [place] [address]-05-25 21:35:00 Test Item Value Reference Range Interpretation Comments PT (test code = PT) 12.0 s 12.0-14.7 [place] [address]-05-25 21:35:00 Test Item Value Reference Range Interpretation Comments INR (test code = INR) 0.89 1 0.85-1.17 [facility]
[2021-11-09] MEDS ORDERED: HYDROCODONE/APAP 5/325 MG TAB ONE (23:29)
[2021-11-10] MEDS ORDERED: KETAMINE HCL 500 MG/5 ML VIAL ONE ×2 (01:38→01:48)
--- NOTE | 2021-11-10 03:06 | ER ---
Nurse's Notes [facility] Name: Vicky Marquis Age: 66 yrs Sex: Female : 1955 Arrival Date: 11/09/2021 Time: 22:34 Bed 16 Private MD: Diagnosis: Displaced trimalleolar fracture of left lower leg, initial encounter for closed fracture;Fall Presentation: 11/09 22:42 Chief complaint: Patient states: Fell in backyard and injured left ankle. Care prior to 3 arrival: None. Mechanism of Injury: Fall. 22:42 Acuity: NORMA 3 eh3 22:42 Method Of Arrival: Wheelchair 3 Historical: - Allergies: 23:23 Talwin; ja4 - Immunization history: Last tetanus immunization: - up to date. Screenin:19 Abuse screen: Denies threats or abuse. Nutritional screening: No deficits noted. ja4 Tuberculosis screening: No symptoms or risk factors identified. Fall Risk None identified. Primary Survey: 11/10 00:55 NO uncontrolled hemorrhage observed. Breathing/Chest: Spontaneous respiratory effort, ja4 equal unlabored respirations, breath sounds clear bilaterally, regular pattern, symmetrical chest rise and fall. Circulation: No external hemorrhage present. Regular and strong central pulse, skin warm/dry/normal color. Disability Client is alert. Client responds to verbal stimuli. Client reponds to painful stimuli. Secondary Survey: 00:56 Musculoskeletal: swelling to left ankle and extraverted slightly. ja4 Assessment: 11/09 22:42 General: Appears in no apparent distress. uncomfortable, Behavior is calm, cooperative, eh3 appropriate for age. Pain: Complains of pain in left lateral ankle, left medial ankle and anterior aspect of left ankle Pain does not radiate. Pain currently is 10 out of 10 on a pain scale. Quality of pain is described as sharp, Pain began 30 min ago. Is continuous. 23:19 Musculoskeletal: Bony deformity noted of left medial ankle and anterior aspect of left ja4 ankle Tenderness. Injury Description: swelling. Vital Signs: 22:42 BP 116 / 89; Pulse 72; Resp 18; Temp 97.8; Pulse Ox 100% on R/A; Weight 69.4 kg; Height 3 5 ft. 6 in. (167.64 cm); Pain 8/10; 11/10 02:55 BP 132 / 76; Pulse 73; Resp 17; Pulse Ox 100% on R/A; ja4 03:26 BP 129 / 82; Pulse 69; Resp 17; Pulse Ox 95% on R/A; ja4 11/09 22:42 Body Mass Index 24.69 (69.40 kg, 167.64 cm) eh3 Fidelia Coma Score: 03:00 Eye Response: spontaneous(4). Verbal Response: oriented(5). Motor Response: obeys ja4 commands(6). Total: 15. Trauma Score (Adult): 03:00 Eye Response: spontaneous(1); Verbal Response: oriented(1); Motor Response: obeys ja4 commands(2); Systolic BP: > 89 mm Hg(4); Respiratory Rate: 10 to 29 per min(4); Silverton Score: 15; Trauma Score: 12 ED Course: 11/09 22:34 Patient arrived in ED. ja2 22:42 Patient has correct armband on for positive identification. Adult w/ patient. eh3 22:42 Patient maintains SpO2 saturation greater than 95% on room air. eh3 22:43 Triage completed. eh3 23:08 [facility] jl9 23:08 Masoud Baker DO is Attending Physician. jl9 23:16 Elmer Wharton, JANETTE is Primary Nurse. ja4 23:19 No provider procedures requiring assistance completed. ja4 11/10 00:08 ice pack given for swelling. ja4 00:17 Ankle Left 3 View In Process Unspecified. EDMS 02:11 Masoud Baker DO is Attending Physician. ms3 02:19 Ankle Left 3 View XRAY In Process Unspecified. EDMS 02:56 Orthoglass splint: Posterior short lleg splint applied on left leg. Applied post ja4 reduction by a physician. 02:57 Awaiting disposition. ja4 03:05 Ivan Arias MD is Referral Physician. ms3 03:26 IV discontinued, intact, bleeding controlled, No redness/swelling at site. Pressure ja4 dressing applied. Administered Medications: 11/09 23:21 Drug: HYDROcodone-acetaminophen 5 mg-325 mg 2 tabs Route: PO; ja4 11/10 02:11 Drug: Ketamine 0.5 mg/kg Route: IVP; Site: right forearm; ll3 02:11 Drug: Ketamine 2 mg/kg Route: IVP; Site: right forearm; ll3 Medication: 11/09 23:19 VIS not applicable for this client. ja4 Outcome: 11/10 03:05 Discharge ordered by . ms3 03:26 Discharged to home via wheelchair, with crutches. ja4 03:26 Condition: stable 03:26 Discharge instructions given to patient, friend, Instructed on discharge instructions, follow up and referral plans. medication usage, Demonstrated understanding of instructions, follow-up care, medications, crutch walking, splint care, Prescriptions given X 1. 03:30 Patient left the ED. ja4 Signatures: Dispatcher [employer] EDMS Masoud Baker DO DO ms3 Janelle Stout ja2 Jarocho Chris, RN RN ll3 Oralia Cruz RN RN 3 David Winters 9 Elmer Wharton, RN RN ja4
--- NOTE | 2021-11-10 03:06 | EDPHYS ---
Physician Documentation [facility] Name: Vicky Marquis Age: 66 yrs Sex: Female : 1955 Arrival Date: 11/09/2021 Time: 22:34 Bed 16 Private MD: ED Physician Masoud Baker HPI: 11/09 23:48 This 66 yrs old Female presents to ER via Wheelchair with complaints of Fall jl9 Injury, left ankle pain. Patient reports stepping into a hole outside. . 23:48 Details of fall: The patient fell from an upright position. Onset: The symptoms/episode jl9 began/occurred just prior to arrival. Severity of symptoms: in the emergency department the symptoms a " 4" out of "10". Historical: - Allergies: 23:23 Talwin; ja4 - Immunization history: Last tetanus immunization: - up to date. ROS: 23:48 Constitutional: Negative for fever, chills, and weight loss, Eyes: Negative for injury, jl9 pain, redness, and discharge, ENT: Negative for injury, pain, and discharge, Neck: Negative for injury, pain, and swelling, Cardiovascular: Negative for chest pain, palpitations, and edema, Respiratory: Negative for shortness of breath, cough, wheezing, and pleuritic chest pain, Abdomen/GI: Negative for abdominal pain, nausea, vomiting, diarrhea, and constipation, Back: Negative for injury and pain. 23:48 Skin: Negative for injury, rash, and discoloration, Neuro: Negative for headache, weakness, numbness, tingling, and seizure, Psych: Negative for depression, anxiety, suicide ideation, homicidal ideation, and hallucinations, Allergy/Immunology: Negative for hives, rash, and allergies, Endocrine: Negative for neck swelling, polydipsia, polyuria, polyphagia, and marked weight changes, Hematologic/Lymphatic: Negative for swollen nodes, abnormal bleeding, and unusual bruising. 23:48 MS/extremity: Positive for pain, swelling, left ankle. Exam: 23:49 Constitutional: This is a well developed, well nourished patient who is awake, alert, jl9 and in no acute distress. Head/Face: Normocephalic, atraumatic. Eyes: Pupils equal round and reactive to light, extra-ocular motions intact. Lids and lashes normal. Conjunctiva and sclera are non-icteric and not injected. Cornea within normal limits. Periorbital areas with no swelling, redness, or edema. ENT: Mucous membranes moist. Neck: Trachea midline, no thyromegaly or masses palpated, and no cervical lymphadenopathy. Supple, full range of motion without nuchal rigidity, or vertebral point tenderness. No Meningismus. Chest/axilla: Normal chest wall appearance and motion. Nontender with no deformity. No lesions are appreciated. Cardiovascular: Regular rate and rhythm with a normal S1 and S2. No gallops, murmurs, or rubs. Normal PMI, no JVD. No pulse deficits. Respiratory: Lungs have equal breath sounds bilaterally, clear to auscultation and percussion. No rales, rhonchi or wheezes noted. No increased work of breathing, no retractions or nasal flaring. Abdomen/GI: Soft, non-tender, with normal bowel sounds. No distension or tympany. No guarding or rebound. No evidence of tenderness throughout. Back: No spinal tenderness. No costovertebral tenderness. Full range of motion. Skin: Warm, dry with normal turgor. Normal color with no rashes, no lesions, and no evidence of cellulitis. 23:49 Neuro: Awake and alert, GCS 15, oriented to person, place, time, and situation. Cranial nerves II-XII grossly intact. Motor strength 5/5 in all extremities. Sensory grossly intact. Cerebellar exam normal. Normal gait. Psych: Awake, alert, with orientation to person, place and time. Behavior, mood, and affect are within normal limits. 23:49 Musculoskeletal/extremity: Exam is negative for pain, Extremities: pain, swelling, ROM: limited active range of motion due to pain, limited passive range of motion due to pain, in the left foot and left ankle, Circulation is intact in all extremities. Sensation intact. Severe pain noted. Joints: Weight bearing: can bear weight with assistance only. Vital Signs: 22:42 BP 116 / 89; Pulse 72; Resp 18; Temp 97.8; Pulse Ox 100% on R/A; Weight 69.4 kg; Height eh3 5 ft. 6 in. (167.64 cm); Pain 8/10; 11/10 02:55 BP 132 / 76; Pulse 73; Resp 17; Pulse Ox 100% on R/A; ja4 03:26 BP 129 / 82; Pulse 69; Resp 17; Pulse Ox 95% on R/A; ja4 11/09 22:42 Body Mass Index 24.69 (69.40 kg, 167.64 cm) eh3 Fidelia Coma Score: 03:00 Eye Response: spontaneous(4). Verbal Response: oriented(5). Motor Response: obeys ja4 commands(6). Total: 15. Trauma Score (Adult): 03:00 Eye Response: spontaneous(1); Verbal Response: oriented(1); Motor Response: obeys ja4 commands(2); Systolic BP: > 89 mm Hg(4); Respiratory Rate: 10 to 29 per min(4); Croghan Score: 15; Trauma Score: 12 Procedures: 02:06 Splinting: Splint applied to left ankle using carol wrap, Orthoglass splint, applied by ms3 myself. post reduction film - reveals normal alignment, Examined by me, post splint application: neurovascular intact, Patient tolerated well. Reduction: of the left ankle, using traction, Immobilized with OCL splint, Patient tolerated well. Moderate sedation: Pre-procedure assessment: ASA physical classification: II - mild/mod systemic disease that does not interfere with daily routines, Airway assessment: able to hyperextend neck, able to maintain airway, can open mouth without difficulty, Mallampati classification of tongue size: II - faucial pillars and soft palate can be visualized, but uvula is masked by the base of the tongue, Monitoring during procedure: electron gun inspector, continuous pulse oximetry, nurse at bedside at all times, Medications employed: Ketamine, 162.5 mg(s). MDM: 11/09 23:15 Patient medically screened. jl9 23:48 Data reviewed: vital signs, nurses notes. 9 11/10 01:19 Counseling: I had a detailed discussion with the patient and/or guardian regarding: the jl9 historical points, exam findings, and any diagnostic results supporting the discharge/admit diagnosis, radiology results, the need for outpatient follow up, to return to the emergency department if symptoms worsen or persist or if there are any questions or concerns that arise at home. 09:11 ED course: Discussed x-ray films with patient and her friend. Patient to follow-up with ms3 Dr. Arias as instructed. Patient understands agrees with plan. All questions were answered. Return precautions discussed include worsening symptoms, or any other concerns. No signs of compartment syndrome present at time of discharge. Cap refill less than 2 seconds, pain controlled, no paresthesias present.. 11/09 23:27 Order name: Ankle Left 3 View EDMS 11/10 02:06 Order name: Ankle Left 3 View XRAY ms3 11/10 01:06 Order name: Posterior Leg Splint jl9 11/10 03:09 Order name: Crutches; Complete Time: 03:12 ms3 Administered Medications: 11/09 23:21 Drug: HYDROcodone-acetaminophen 5 mg-325 mg 2 tabs Route: PO; ja4 11/10 02:11 Drug: Ketamine 0.5 mg/kg Route: IVP; Site: right forearm; ll3 02:11 Drug: Ketamine 2 mg/kg Route: IVP; Site: right forearm; ll3 Disposition: 09:11 Co-signature as Attending Physician, Masoud Baker DO. ms3 Disposition Summary: 11/10/21 03:05 Discharge Ordered Location: Home ms3 Condition: Stable ms3 Diagnosis - Displaced trimalleolar fracture of left lower leg, initial encounter for closed ms3 fracture - Fall ms3 Followup: ms3 - With: Ivan Arias MD - When: 2 - 3 days - Reason: Recheck today's complaints Discharge Instructions: - Discharge Summary Sheet ms3 - Ankle Fracture, [id number] ms3 Forms: - Medication Reconciliation Form ms3 - Thank You Letter ms3 - Antibiotic Education ms3 - Prescription Opioid Use ms3 Signatures: Dispatcher [employer] [facility] Masoud Baker DO DO ms3 Jarocho Chris RN RN ll3 Oralia Cruz, JANETTE RN 3 David Winters jl9 Elmer Wharton, RN RN ja4 Corrections: (The following items were deleted from the chart) 00:18 11/09 23:50 Ankle Left 3 View+[email or web address] ordered. [facility] 11/10 02:10 11/09 23:49 Musculoskeletal/extremity: Exam is negative for pain, Extremities: pain, jl9 swelling, ROM: limited active range of motion due to pain, Circulation is intact in all extremities. Sensation intact. Weight bearing: can bear weight with assistance only, jl9 11/10 02:11/09 23:48 This 66 yrs old Female presents to ER via Wheelchair with jl9 complaints of Fall Injury, Leg Pain. jl9
[2021-11-10 06:12] VITALS: TEMP 97.8
[2021-11-10 06:22] VITALS: BP 129/82; O2SAT 95
--- NOTE | 2021-11-10 16:37 | RAD REPORT ---
EXAM DESCRIPTION: RAD - Ankle Left 3 View - 11/10/2021 12:15 am CLINICAL HISTORY: 66 years Female ankle injury COMPARISON: None TECHNIQUE: 3 images of the left ankle were obtained. FINDINGS: Comminuted displaced fractures diametaphyseal region distal fibula. Marked lateral soft ti ssue swelling. Additional comminuted displaced transverse fractures medial distal tibia. Diastasis of the fracture fragments. Widening tibiotalar joint which measures 4 mm in transverse dimension. Tibio talar subluxation with medial disc Eisman distal tibia with relationship to talus. Fracture posterior distal tibia. Normal bony mineralization. No erosive or lytic lesions. IMPRESSION: Complex comminuted trimalleolar fractures left ankle. Tibiotalar subluxation. Electronically signed by: Cara Dasilva MD 11/10/2021 12:55 AM CDT Due to temporary technical issues with the PACS/Fluency reporting system, reports are being signed by the in house radiologists without review as a courtesy to insure prompt reporting. The interpreting radiologist is fully responsible for the content of the report.
--- NOTE | 2021-11-10 17:29 | RAD REPORT ---
EXAM DESCRIPTION: RAD - Ankle Left 3 View - 11/10/2021 2:17 am CLINICAL HISTORY: Post reduction TECHNIQUE: Frontal, lateral and oblique views of the left ankle. COMPARISON: XR Ankle dated 11/09/2021 FINDINGS: Limitations: Interval placement of cast material limits fine ossific detail. Bones/joints: Mildly comminuted transversely oriented medial malleolus fracture with interval decre ase in degree of displacement. Comminuted obliquely oriented and impacted distal fibular fracture at and above the level of the syndesmosis which appears slightly more displaced on the oblique view. Caesar tically oriented posterior malleolus fracture which is slightly more proximally and posteriorly displ aced. Interval decrease in lateral displacement of the talus and foot with respect to the distal tibi a with improved alignment at the ankle mortise. Soft tissues: Surrounding soft tissue swelling IMPRESSION: Post reduction as above. Electronically signed by: Mitch Newton MD 11/10/2021 2:55 AM CDT Due to temporary technical issues with the PACS/Fluency reporting system, reports are being signed by the in house radiologists without review as a courtesy to insure prompt reporting. The interpreting radiologist is fully responsible for the content of the report.
== END 2021-11-10 03:30 | disposition home or self-care (01) ==
LOC: ER 22:31
PROC: 0QSKXZZ Reposition Left Fibula, External Approach (ICD-10-PCS; principal; 2021-11-10)
DX: S82.852A Displaced trimalleolar fracture of left lower leg, initial encounter for closed fracture (principal); W19.XXXA Unspecified fall, initial encounter
CPT/HCPCS: 96374; 99284